=== PATIENT | female | born 1990 | race Two or more races ===

== ENCOUNTER 2016-12-25 00:58 | Emergency (ER) | payer MEDICAID ==
[~2016-12-25] VITALS: Ht 152.4 cm; Wt 68.0 kg
[2016-12-25 01:05] VITALS: BP 132/82
== END 2016-12-25 02:06 | disposition home or self-care (01) ==
LOC: ER 00:58
DX: J02.9 Acute pharyngitis, unspecified (principal)

== ENCOUNTER 2018-06-10 21:22 | Observation (INO) | payer MEDICAID ==
[2018-06-10] MEDS ORDERED: PREN-96 PO (22:26)
== END 2018-06-10 22:12 | disposition home or self-care (01) | DRG 566 ==
LOC: LDRP 21:22
PROVIDERS: ADMIT Obstetrics & Gynecology; ATTEND Obstetrics & Gynecology
DX: O26.892 Other specified pregnancy related conditions, second trimester (principal); M54.9 Dorsalgia, unspecified; R10.9 Unspecified abdominal pain; O99.89 Other specified diseases and conditions complicating pregnancy, childbirth and the puerperium; Z3A.26 26 weeks gestation of pregnancy
CPT/HCPCS: 59025; 81002; G0378

== ENCOUNTER 2019-08-07 19:55 | Emergency (ER) | payer MEDICAID ==
[~2019-08-07] VITALS: Ht 154.9 cm; Wt 81.6 kg
[~2019-08-07 19:55] MED LIST: PREN-96 PO
[2019-08-08] MEDS ORDERED: LORazepam 2MG/ML-1ML VIAL IV ONE (01:00)
[2019-08-08 04:10] VITALS: BP 197/57
== END 2019-08-08 05:51 | disposition home or self-care (01) ==
LOC: ER 19:59
DX: H70.92 Unspecified mastoiditis, left ear (principal); H60.92 Unspecified otitis externa, left ear
CPT/HCPCS: 70450; 93005; 96374; 99284; J2060

== ENCOUNTER 2020-12-02 22:47 | Emergency (ER) | payer MEDICAID ==
[~2020-12-02] VITALS: Ht 154.9 cm; Wt 83.0 kg
[2020-12-03] MEDS ORDERED: SODIUM CHLORIDE 0.9% 1,000 ML IV ONE (02:45)
[2020-12-03 06:39] LABS: Basophils # (auto) 0.1 10 ^3/uL (0-0.2); Eosinophils # (auto) 0.1 10 ^3/uL (0-0.8); Monocytes # (auto) 0.6 10 ^3/uL (0-1.3); White Blood Cell 10.7 10^3/uL (4.4-10.8)
[2020-12-03 06:43] LABS: Basophils % (auto) 0.6 % (0.0-2.0); Eosinophils % (auto) 1.1 % (0.0-7.0); Hematocrit 34.1 % (36.0-46.0); Hemoglobin 11.7 g/dL (12.2-16.2); Lymphocytes # (auto) 2.5 10 ^3/uL (0.4-5.4); Lymphocytes % (auto) 23.7 % (10.0-50.0); Mean Corpuscular Hemoglobin 25.8 pg (28.0-32.0); Mean Corpuscular Hgb Conc. 34.4 g/dL (32.0-36.0); Mean Corpuscular Volume 74.9 fL (80.0-100.0); Monocytes % (auto) 5.5 % (0.0-12.0); Neutrophils # (auto) 7.4 10 ^3/uL (1.6-8.6); Neutrophils % (auto) 69.1 % (37.0-80.0); Platelet Count (auto) 333 10^3/uL (140-450); Red Blood Cells 4.56 10^6/uL (4.0-5.20); Red Cell Distribution Width 17.3 % (11.8-14.3)
[2020-12-03 06:58] LABS: Albumin 3.4 g/dL (3.4-5.0); Calcium 8.9 mg/dL (8.5-10.1); Magnesium 2.1 mg/dL (1.6-2.6); Potassium 3.4 mmol/L (3.5-5.1)
[2020-12-03 07:03] LABS: BUN/Creatinine Ratio 9.7; Bilirubin, Total 0.3 mg/dL (0.2-1.0); Total Protein 8.5 g/dL (6.4-8.2)
[2020-12-03 07:27] VITALS: BP 123/70
[2020-12-03] MEDS ORDERED: DICYCLOMINE HCL (10MG/ML) 2 ML AMPULE IM ONE (08:15)
[2020-12-03] MEDS ORDERED: ACETAMINOPHEN 500 MG TAB PO ONE (09:30)
== END 2020-12-03 09:49 | disposition home or self-care (01) ==
LOC: ER 22:48
DX: O21.0 Mild hyperemesis gravidarum (principal); O26.891 Other specified pregnancy related conditions, first trimester; R51.9 Headache, unspecified; E86.0 Dehydration; Z3A.08 8 weeks gestation of pregnancy
CPT/HCPCS: 36415; 80053; 83735; 85025; 96360; 96372; 99283; J0500; J7030

== ENCOUNTER 2021-05-20 15:20 | Observation (INO) | payer MEDICAID ==
[~2021-05-20] VITALS: Ht 154.9 cm; Wt 88.9 kg
[2021-05-20] MEDS ORDERED: LACTATED RINGER'S 1,000 ML IV ONE (16:00)
[2021-05-20] MEDS: TERBUTALINE SULFATE 1 MG/ML 1ML VIAL SC SCH ×2 (16:04→16:56)
== END 2021-05-20 17:50 | disposition home or self-care (01) ==
LOC: LDRP 15:20
PROVIDERS: ADMIT Specialist; ATTEND Specialist
DX: O60.03 Preterm labor without delivery, third trimester (principal); O62.9 Abnormality of forces of labor, unspecified; Z3A.32 32 weeks gestation of pregnancy
CPT/HCPCS: 59025; 81002; 96360; 96372; G0378; J3105

== ENCOUNTER 2021-07-17 19:49 | Emergency (ER) | payer MEDICAID ==
[~2021-07-17] VITALS: Ht 154.9 cm; Wt 81.6 kg
[2021-07-17] MEDS ORDERED: FUROSEMIDE 40 MG/4 ML VIAL ONE (20:47)
[2021-07-17 22:00] VITALS: BP 129/81
== END 2021-07-17 22:54 | disposition home or self-care (01) ==
LOC: ER 19:51
DX: R53.1 Weakness (principal); R51.9 Headache, unspecified; R42 Dizziness and giddiness; R55 Syncope and collapse; R20.2 Paresthesia of skin; Z79.899 Other long term (current) drug therapy; Z20.822 Contact with and (suspected) exposure to COVID-19
CPT/HCPCS: 36415; 87426; 99283; J1940

== ENCOUNTER 2024-03-31 22:17 | Emergency (ER) | payer MEDICAID ==
[~2024-03-31] VITALS: Ht 154.9 cm; Wt 88.7 kg
[2024-03-31 22:58] LABS: Urine Bacteria None Seen /hpf (None Seen)
[2024-03-31 23:05] LABS: Basophils # (auto) 0.1 10 ^3/uL (0-0.2); Eosinophils # (auto) 0.2 10 ^3/uL (0-0.8); Red Blood Cells 4.38 10^6/uL (4.0-5.20); Red Cell Distribution Width 16.9 % (11.8-14.3)
[2024-03-31 23:07] LABS: Basophils % (auto) 0.6 % (0.0-2.0); Hemoglobin 11.3 g/dL (12.2-16.2); Lymphocytes # (auto) 2.5 10 ^3/uL (0.4-5.4); Lymphocytes % (auto) 15.5 % (10.0-50.0); Mean Corpuscular Hemoglobin 25.8 pg (28.0-32.0); Mean Corpuscular Hgb Conc. 33.2 g/dL (32.0-36.0); Mean Corpuscular Volume 77.7 fL (80.0-100.0); Monocytes # (auto) 0.7 10 ^3/uL (0-1.3); Monocytes % (auto) 4.6 % (0.0-12.0); Neutrophils # (auto) 12.5 10 ^3/uL (1.6-8.6); Neutrophils % (auto) 78.3 % (37.0-80.0); Nucleated Red Blood Cells % 0.1 %
[2024-03-31 23:23] LABS: Urine Blood 3+ /uL (Negative); Urine Clarity Turbid (Clear); Urine Color Light-Orange (Yellow); Urine Protein, UAD 1+ (Negative); Urine Specific Gravity 1.019 (1.001-1.035); Urine Urobilinogen Normal (Negative); Urine WBC 7 /hpf (0 - 5)
[2024-03-31 23:24] LABS: Alanine Aminotransferase 10 U/L (7-40); Albumin 4.3 g/dL (3.2-4.8); Alkaline Phosphatase 69 U/L (46-116); Anion Gap 9 (5-15); Aspartate Aminotransferase 10 U/L (13-40); BUN/Creatinine Ratio 8.3 (10.0-20.0); Bilirubin, Total 0.3 mg/dL (0.2-1.0); Blood Urea Nitrogen 7 mg/dL (9-23); Calcium 9.8 mg/dL (8.7-10.4); Carbon Dioxide 23 mmol/L (20-30); Chloride 102 mmol/L (98-107); Glucose 187 mg/dL (74-106); Potassium 3.1 mmol/L (3.5-5.1); Sodium 134 mmol/L (136-145); Total Protein 7.6 g/dL (5.7-8.2)
[2024-04-01 03:20] VITALS: BP 127/77; PULSE 98; RESP 19; O2SAT 99
[2024-04-01] MEDS: POTASSIUM CHL 20 Meq TABLET PO ONE (03:20)
== END 2024-04-01 03:31 | disposition home or self-care (01) ==
LOC: ER 22:17
DX: O03.6 Delayed or excessive hemorrhage following complete or unspecified spontaneous abortion (principal); R10.2 Pelvic and perineal pain
CPT/HCPCS: 36415; 76801; 76817; 80053; 81001; 84702; 85025; 86850; 86900; 86901

== ENCOUNTER 2024-08-02 18:32 | Emergency (ER) | payer MEDICAID ==
[~2024-08-02] VITALS: Ht 154.9 cm; Wt 74.0 kg
[2024-08-02 19:05] VITALS: BP 119/80; PULSE 97; RESP 17; O2SAT 94
[2024-08-02] MEDS ORDERED: COROSUS OT (20:32)
[2024-08-02] MEDS ORDERED: IBU600T PO (20:32)
[2024-08-02] MEDS ORDERED: LORA-1130 PO (20:32)
[2024-08-02] MEDS: HYDROcodone-ACET 5/325MG TAB PO ONE (21:40)
== END 2024-08-02 21:40 | disposition home or self-care (01) ==
LOC: ER 18:32
DX: H69.93 Unspecified Eustachian tube disorder, bilateral (principal)

== ENCOUNTER 2024-08-06 18:30 | Emergency (ER) | payer MEDICAID ==
[~2024-08-06] VITALS: Ht 165.1 cm; Wt 80.0 kg
[~2024-08-06 18:30] MED LIST changes: +COROSUS OT; +IBU600T PO; +LORA-1130 PO
[2024-08-06 19:29] VITALS: BP 138/93; PULSE 78; RESP 18; TEMP 98.6; O2SAT 99
[2024-08-06] MEDS ORDERED: AZIT-43 PO (21:39)
[2024-08-06] MEDS: DexAMETHasone SOD PHOS 10MG/1ML VIAL INJ IM ONE (21:54)
== END 2024-08-06 21:55 | disposition home or self-care (01) ==
LOC: ER 18:30
DX: J06.9 Acute upper respiratory infection, unspecified (principal); Z79.899 Other long term (current) drug therapy
CPT/HCPCS: 96372; 99283; J1100

== ENCOUNTER 2024-11-09 17:00 | Emergency (ER) | payer MEDICAID ==
[~2024-11-09] VITALS: Ht 157.5 cm; Wt 80.0 kg
[~2024-11-09 17:00] MED LIST changes: +AZIT-43 PO
[2024-11-09] MEDS: ACETAMINOPHEN 500 MG TAB or CAP PO ONE (17:50)
[2024-11-09 19:11] VITALS: BP 122/76; PULSE 105; RESP 17; TEMP 99; O2SAT 97
[2024-11-09] MEDS ORDERED: PRED20TA2 PO (19:16)
[2024-11-09] MEDS ORDERED: ACET500T58 PO (19:16)
[2024-11-09] MEDS ORDERED: AZIT-43 PO (19:16)
--- NOTE | 2024-11-09 19:16 | ED.PDOC ---
History of Present Illness HPI Comments 34 year old female presents to ER with complaints of cough x1 week. Patient reports he has been experiencing a dry cough x1 week with associated fever ans sore throat x1 day. Reports that she last took [id number] Tylenol at 2:00 p.m. prior to arrival to ER. Patient presents to ER febrile on arrival at 101.2 F, ambulatory, with steady gait, in no distress. Denies any pain. Notes that her son has also been experiencing similar symptoms. 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: No Pertinent HAIRSPRING SETTER History Family History Family History: No family hx ofKidney alvaro, No family hx of Liver alvaro, No family hx of Lung alvaro, Family hx of DM, Family hx of heart alvaro, Family hx of stroke Social History Smoker: Non-Smoker Alcohol: Denies ETOH Use Drugs: Denies Drug Use Lives In: Home Constitutional: See HPI EENTM: See HPI Respiratory: See HPI Cardiovascular: No Symptoms Reported Gastrointestinal: No Symptoms Reported Genitourinary: No Symptoms Reported Neurological: No Symptoms Reported Musculoskeletal: No Symptoms Reported Integumentary: No Symptoms Reported Allergic/Immunocompromised: others (unknown) Hematologic/Lymphatic: No Symptoms Reported Endocrine: No Symptoms Reported Psychiatric: No symptoms Reported Physical Exam General Appearance: No Apparent Distress, Obese HEENT: PERRL/EOMI, Pharyngeal Erythema (Mild tonsillar swelling/erythema noted bilaterally without exudates. Uvula-normal), TMs Normal Neck: Full Range of Motion, Non-Tender, Normal Respiratory: Chest Non-Tender, Lungs Clear, No Accessory Muscle Use, No Respir atory Distress, Normal Breath Sounds Cardiovascular: No Murmur, No Gallop, Regular Rate/Rhythm Breast Exam: Deferred Gastrointestinal: NOT DONE Genitalia: Deferred Pelvic: Deferred Rectal: Deferred Extremities: Normal capillary refill, Normal range of motion Neurologic: Alert, program engagement director II-XII nml as Tested, No Motor Deficits, Normal Affect, Normal Mood, No Sensory Deficits Cerebellar Function: Normal Reflexes: Normal Skin: Dry, Normal Color, Warm Peripheral Pulses: 2+ Radial (R), 2+ Radial (L), 2+ Brachial (R), 2+ Brachial (L) Lymphatic: No Adenopathy Was a procedure done? Was a procedure done?: No Sedation Sedation?: No Fever Differential Dx Differential Diagnosis: Pneumonia, Sepsis, Pharyngitis X-Ray, Labs, Meds, VS Vital Signs Date Time Temp Pulse Resp B/P (MAP) Pulse Ox O2 Delivery O2 Flow Rate FiO2 11/09/24 19:11 99.0 105 17 122/76 (91) 97 99.0 11/09/24 19:06 99.0 11/09/24 18:28 100.0 124 17 130/87 (101) 97 100.0 11/09/24 18:28 124 20 98 Room Air 11/09/24 17:50 100.5 11/09/24 17:34 101.2 130 20 149/91 (110) 97 Current Medications Medications (Trade) Dose Ordered Sig/Nelly Route Start Time Stop Time Status Last Admin Acetaminophen (Tylenol Tablet Or Capsule) 1,000 mg ONCE ONCE PO 11/09/24 17:45 11/09/24 17:46 DC 11/09/24 17:50 PATIENT: BA MARCH ACCT: [id number] UNIT: [id number] : 1990 LOC: ER ROOM / BED: / AGE / SEX: 34 / F ADM STATUS: [facility] ER SERVICE 09 ORDERING PHYSICIAN: HANNA VERA PROCEDURE(s): CXR1 - CHEST XRAY 1 VIEW REASON: cough ORDER NUMBER(s): [id number], ACCESSION NUMBER(s): [id number] CHEST RADIOGRAPH Indication: cough Technique: Single frontal view of the chest was obtained Comparison: None FINDINGS: Lines and Tubes: None Lungs: No focal consolidation. Pleura: No effusion. No pneumothorax. Cardiomediastinal contours: Unremarkable Bones: No acute osseous abnormality. IMPRESSION: 1. No acute cardiopulmonary disease. HS:Y ATED BY: ZAN ROSAS Jr., DO DICTATED DATE/TIME: 11/09/241931 SIGNED BY: ZAN ROSAS Jr., SIGNED DATE/TIME: 11/09/241931 CC: waiver signed Tylenol 1000 mg p.o. ordered Rocephin 1 g IM ordered Solu-Medrol 125 mg IM ordered Chest x-ray reviewed Patient had improvement in symptoms and in no distress prior to discharge Advised to drink plenty of fluids Advised to follow up with PCP in 1-2 days Patient verbalized understanding and agreeable with current plan of care Advised to return to ER immediately if symptoms worsen Time of 1ST Reevaluation: 18:54 Reevaluation 1ST: N/A Time of 2ND Reevaluation: 19:44 Reevaluation 2ND: Improved Patient Education/Counseling: Diagnosis, Treatment, Prognosis, Need For Follow Up Family Education/Counseling: No Family Present Departure 1 Departure Time of Disposition: 19:50 Impression: Primary Impression: URI (upper respiratory infection) Qualified Codes: J06.9 - Acute upper respiratory infection, unspecified Disposition: HOME / SELF CARE / HOMELESS Condition: Stable e-Prescriptions Prednisone (Prednisone) 20 Mg Tab 20 MG PO BID for 5 Days, #10 TAB 0 Refills Prov: HANNA VERA 11/09/24 Azithromycin (Azithromycin) 250 Mg Tab 250 MG PO DAILY MDD 500 for 5 Days, #6 TAB 0 Refills 2 TABLETS ORALLY ON DAY ONE, THEN 1 TABLET ORALLY DAILY FOR 4 DAYS Prov: HANNA VERA 11/09/24 Acetaminophen (Acetaminophen) 500 Mg Tab 500 MG PO Q4HPRN, #30 TAB 0 Refills Prov: HANNA VERA 11/09/24 Discharged With: Self Critical Care Note Critical Care Time?: No Stability Stability form required: No Heart Score Heart Score: Heart Score Response (Comments) Value History N/A 0 EKG N/A 0 Age N/A 0 Risk Factors N/A 0 Troponin N/A 0 Total 0 HANNA VERA Nov 09, 2024 19:16
[2024-11-09] MEDS ORDERED: methylPREDNISolone SOD SUCC 125 MG/2 ML VL IM ONE (19:30)
[2024-11-09] MEDS ORDERED: cefTRIAXone SOD 1,000 MG VL IM ONE (19:30)
--- NOTE | 2024-11-09 19:34 | DVH ---
CHEST RADIOGRAPH Indication: cough Technique: Single frontal view of the chest was obtained Comparison: None FINDINGS: Lines and Tubes: None Lungs: No focal consolidation. Pleura: No effusion. No pneumothorax. Cardiomediastinal contours: Unremarkable Bones: No acute osseous abnormality. IMPRESSION: 1. No acute cardiopulmonary disease. HS:Y
== END 2024-11-09 19:05 | disposition home or self-care (01) ==
LOC: ER 17:00
DX: J06.9 Acute upper respiratory infection, unspecified (principal)
CPT/HCPCS: 71045

== ENCOUNTER 2025-05-30 18:15 | Emergency (ER) | payer MEDICAID ==
[~2025-05-30] VITALS: Ht 154.9 cm; Wt 85.0 kg
[~2025-05-30 18:15] MED LIST changes: +ACET500T58 PO; +PRED20TA2 PO
--- NOTE | 2025-05-30 19:51 | ED.PDOC ---
History of Present Illness HPI Comments 35-year-old female presents with chief complaint of abnormal vaginal spotting and lower abdominal pain. Patient endorses on being 18 weeks with her 12th , currently ([id number] miscarriages and 3 elective abortions. She reports on unprovoked, atraumatic, sudden onset of symptoms, today. Blood is bright red whenever using the toilet and light pink with wiping. Significant history of aborted and miscarriage pregnancies and anemia with need for blood transfusion with previous pregnancies. Last sexual intercourse was less than 3 days ago. Last order desk caller appointment was 2-3 weeks ago. Patient denies having any nausea, vomiting, urinary symptoms, fever, chills, or further associated symptoms. REVIEW OF SYSTEMS: General: No fever, no chills, HEENT: No neck pain, no blurred vision Cardiac: No chest pain. No palpitations. Lungs: No shortness of breath, GI: Abdominal pain, no vomiting : Abnormal vaginal bleeding Musculoskeletal: No joint pain , no back pain Skin: No rash, no wound Neuro: No headache, no dizziness, no syncope PHYSICAL EXAM: General: Awake, alert and oriented. No acute distress. Skin: Skin in warm, dry and intact without rashes or lesions. HEENT: The head is normocephalic and atraumatic. Conjunctivae are clear without exudates or hemorrhage. Sclera is non-icteric. Neck: Normal range of motion. No JVD. Cardiac: Regular rate Respiratory: No signs of respiratory distress. No Stridor. Gastrointestinal: abdomen Extremities: Upper and lower extremities are atraumatic in appearance without deformity. Neurological: The patient is awake, alert and oriented to person, place, and time with normal speech. Speech is clear. There is no facial asymmetry. Normal gait Psychiatric: Appropriate mood and affect. Good judgement and insight. Chief Complaint: Vaginal Bleed Time Seen by MD: 20:30 Primary Care Provider: UNKNOWN Reviewed Notes: Nurses Notes, Medications, Allergies Allergies: Coded Allergies: NO KNOWN ALLERGIES (Unverified , 11/11/14) Home Meds Active Scripts Cephalexin (KEFLEX CAPSULE) 250 Mg Cp, 500 MG PO BID for 7 Days, #28 CAP Prov:TRUONG MOORE MD 05/31/25 Prednisone (Prednisone) 20 Mg Tab, 20 MG PO BID for 5 Days, #10 TAB 0 Refills Prov:JODYHANNA THOMSON 11/09/24 Azithromycin (Azithromycin) 250 Mg Tab, 250 MG PO DAILY MDD 500 for 5 Days, #6 TAB 0 Refills 2 TABLETS ORALLY ON DAY ONE, THEN 1 TABLET ORALLY DAILY FOR 4 DAYS Prov:JODYHANNA BERTO 11/09/24 Acetaminophen (Acetaminophen) 500 Mg Tab, 500 MG PO Q4HPRN, #30 TAB 0 Refills Prov:JODYHANNA BERTO 11/09/24 Azithromycin (Azithromycin) 250 Mg Tab, 250 MG PO DAILY MDD 500 for 5 Days, #6 TAB 0 Refills 2 TABLETS ORALLY ON DAY ONE, THEN 1 TABLET ORALLY DAILY FOR 4 DAYS Prov:ROSELIA MOORE [employer]ATORY DIRECTOR 08/06/24 Loratadine & Pseudoephedrine (Claritin-D 24 Hour 10-240 mg) 1 Tab Tab, 1 TAB PO DAILY for 7 Days, #7 TAB Prov:CRISTINA REYEZ MD 08/02/24 Oulhegbh-Ckruuhqzt-Qo (Otic) (Cortisporin Otic Susp) [address], 1 DROP OT TID for 5 Days, #1 DROP Prov:CRISTINA REYEZ MD 08/02/24 Ibuprofen Micronized (MOTRIN TABLET) 600 Mg Tb, 600 MG PO TID PRN, #40 TAB *Black box warning-NSAIDS can increase risk of WA & hypertension, GI irritation, ulceration, bleed, perferation. Do not use post cardiac surgery. Use short duration/lowest effective dose. Prov:CRISTINA REYEZ MD 08/02/24 Reported Medications Vit W/ Ferrous Fumara ( One Daily) Daily Tab, 1 TAB PO DAILY, #90 TAB 3 Refills 06/10/18 Information Source: Patient Mode of Arrival: Ambulatory Severity: Moderate Timing: Hours Duration: Since onset Prehospital treatment: None Past Medical History PAST MEDICAL HISTORY: Anemia Surgical History (Other): Hx of blood transfusions in the past with her previous pregnancies. 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 Was a procedure done?: No Differential Dx Considerations may include: Differential diagnoses considered include but are not limited to placenta previa, placental abruption, ruptured vasa previa, uterine scar or disruption, cervicitis, vaginitis, labor, trauma, urinary tract infection, other X-Ray, Labs, Meds, VS Vital Signs Date Time Temp Pulse Resp B/P (MAP) Pulse Ox O2 Delivery O2 Flow Rate FiO2 05/31/25 01:39 98.8 79 20 124/62 (82) 100 98.8 05/30/25 18:20 98.1 95 16 114/71 97 98.1 Lab Test 05/30/25 20:44 05/30/25 19:52 Range/Units White Blood Count 9.4 4.4-10.8 10^3/uL Red Blood Count 3.75 L 4.0-5.20 10^6/uL Hemoglobin 9.7 L 12.2-16.2 g/dL Hematocrit 28.1 L 36.0-46.0 % Mean Corpuscular Volume 75.0 L 80.0-100.0 fL Mean Corpuscular Hemoglobin 26.0 L 28.0-32.0 pg Mean Corpuscular Hemoglobin Concent 34.6 32.0-36.0 g/dL Red Cell Distribution Width 17.9 H 11.8-14.3 % Platelet Count 235 140-450 10^3/uL Mean Platelet Volume 8.5 6.9-10.8 fL Neutrophils (%) (Auto) 69.0 37.0-80.0 % Lymphocytes (%) (Auto) 22.8 10.0-50.0 % Monocytes (%) (Auto) 5.3 0.0-12.0 % Eosinophils (%) (Auto) 2.3 0.0-7.0 % Basophils (%) (Auto) 0.6 0.0-2.0 % Neutrophils # (Auto) 6.5 1.6-8.6 10 ^3/uL Lymphocytes # (Auto) 2.1 0.4-5.4 10 ^3/uL Monocytes # (Auto) 0.5 0-1.3 10 ^3/uL Eosinophils # (Auto) 0.2 0-0.8 10 ^3/uL Basophils # (Auto) 0.1 0-0.2 10 ^3/uL Nucleated Red Blood Cells 0.0 % Sodium Level 139 136-145 mmol/L Potassium Level 3.2 L 3.5-5.1 mmol/L Chloride Level 105 98-107 mmol/L Carbon Dioxide Level 25 20-31 mmol/L Anion Gap 9 5-15 Blood Urea Nitrogen 7 L 9-23 mg/dL Creatinine 0.56 0.550-1.02 mg/dL Glomerular Filtration Rate Calc 122 >90 mL/min BUN/Creatinine Ratio 12.5 10.0-20.0 Serum Glucose 103 74-106 mg/dL Calcium Level 9.4 8.7-10.4 mg/dL Beta HCG, Quantitative 25251.6 H 1.5-4.2 mIU/mL Urine Color Yellow Yellow Urine Clarity Clear Clear Urine pH 5.5 5.0-9.0 Urine Specific [place] 1.030 1.001-1.035 Urine Protein Trace H Negative Urine Ketones Trace Negative Urine Blood 3+ H Negative /uL Urine Nitrite Negative Negative Urine Bilirubin Negative Negative Urine Urobilinogen Normal Negative mg/dL Urine Leukocyte Esterase 1+ Negative /uL Urine RBC 4 0 - 4 /hpf Urine Microscopic WBC 8 H 0-5 /HPF Urine Squamous Epithelial Cells Few <5 /hpf Urine Bacteria Few H None Seen /hpf Urine Mucus Few None Seen Urine Glucose Normal Normal mg/dL Urine Test Positive Negative [place] [id number] Ph: [phone] DIAGNOSTIC IMAGING Diagnostic Imaging Report : [id number] Signed PATIENT: BA MARCH ACCT: [id number] UNIT: [id number] : 1990 LOC: ER ROOM / BED: / AGE / SEX: 35 / F ADM STATUS: REG ER SERVICE 33 ORDERING PHYSICIAN: TRUONG MOORE MD PROCEDURE(s): OBUS - OB ULTRASOUND COMP GTR 14 WKS REASON: Vaginal bleeding, , abdominal pain ORDER NUMBER(s): [id number], ACCESSION NUMBER(s): [id number] LIMITED OB ULTRASOUND > 14 WKS: HISTORY: Vaginal bleeding, , abdominal pain TECHNIQUE: Multiple real-time grayscale images of the gravid uterus with duplex Doppler color flow and M-mode spectral analysis. TRANSDUCER: Transabdominal FINDINGS: IUP single live fetus at 17 weeks 2 days based on composite averages of the BPD, head circumference, abdominal circumference and femur length Estimated weight 185.67 grams heart rate 150 beats per minute TANGELA 4.9 cm Cervix 2.8 Breech Presentation Anterior Grade 1 Placenta without previa or abruption. BPD: 3.76 cm 17 weeks 3 days HC: 14.13 cm 17 weeks 3 days AC: 11.42 cm; 17 weeks 1 day FL: 2.37 cm ; 17 weeks 1 day CI: 76.44 (70 -86) HC/AC: 1.24 (1.070-1.29 FL/HC: 16.79 (14.94- 17.71 IMPRESSION: 1. IUP single live fetus at 17 weeks 2 days AUA corresponding to an VANNESA of 11/05/2025 2. FHR: 150 beats per minute ATED BY: ZAN TAPIA Jr., DO DICTATED DATE/TIME: 05/30/252114 SIGNED BY: ZAN TAPIA Jr., DO SIGNED DATE/TIME: 05/30/252114 CC: Time of 1ST Reevaluation: 21:00 Reevaluation 1ST: Unchanged Patient Education/Counseling: Treatment, Need For Follow Up Family Education/Counseling: No Family Present SEPSIS Sepsis Screen Date sepsis recognized/suspect: May 30, 2025 Time Sepsis recognized/suspect: 1822 Recent Procedure: No On Antibiotic Therapy: No Respiratory Rate >20: No Heart Rate >90: No Temp<36 C (96.8 F) or >38.3 C: No SBP <90 or MAP <65 mmHG: No New Acute Mental Status Change: No Is the patient on CPAP, BIPAP,: No Physician Orders Ob Ultrasound Comp Gtr 14 Wks (05/30/25 20:34) Vital Signs Date Time Temp Pulse Resp B/P (MAP) Pulse Ox O2 Delivery O2 Flow Rate FiO2 05/31/25 01:39 98.8 79 20 124/62 (82) 100 98.8 05/30/25 18:20 98.1 95 16 114/71 97 98.1 Laboratory Tests Test 05/30/25 20:44 White Blood Count 9.4 10^3/uL (4.4-10.8) Departure 1 Departure Time of Disposition: 22:43 Impression: Primary Impression: Vaginal bleeding during Additional Impressions: Anemia UTI (urinary tract infection) Disposition: 01 HOME / SELF CARE / HOMELESS Condition: Stable Additional Instructions: ED DISCHARGE INSTRUCTIONS Instructions: Please read all instructions provided in this packet carefully. Although you have been discharged from the Emergency Department, this does not mean that you have a "clean bill of health". No definitive diagnosis for your symptoms has been made today. It is possible that you are in the process of developing a serious illness. This is why you must return to the ED without fail if any new or worsening symptoms (especially if your symptoms include chest pain, trouble breathing, abdominal pain, fever, headache, confusion, trouble seeing, or trouble walking) It is also very important that you see your order desk caller within the next 3-5 days to follow up. A copy of your ultrasound report is included below. If you are unable to get an appointment, return to the ED for re-evaluation. Overview It's common to have some vaginal spotting when you are . In some cases, the bleeding isn't serious. And there aren't any more problems with the . But sometimes bleeding is a sign of a more serious problem. This is more common if the bleeding is heavy or painful. Examples of more serious problems include miscarriage, an ectopic , and a problem with the placenta. You may have to see your doctor again to be sure everything is okay. You may also need more tests to find the cause of the bleeding. Home treatment may be all you need. But it depends on what is causing the bleeding. Be sure to tell your doctor if you have any new symptoms or if your symptoms get worse. The doctor has checked you carefully, but problems can develop later. If you notice any problems or new symptoms, get medical treatment right away. Follow-up care is a gomez part of your treatment and safety. Be sure to make and go to all appointments, and call your doctor if you are having problems. It's also a good idea to know your test results and keep a list of the medicines you take. How can you care for yourself at home? If your doctor prescribed medicines, take them exactly as directed. Call your doctor if you think you are having a problem with your medicine. Do not have vaginal sex until your doctor says it's okay. Do not put anything in your vagina until your doctor says it's okay. Ask your doctor about other activities you can or can't do. Get a lot of rest. Being can make you tired. Do not use nonsteroidal anti-inflammatory drugs (NSAIDs), such as ibuprofen (Advil, Motrin), naproxen (Aleve), or aspirin, unless your doctor says it is okay. When should you call for help? Call 911 anytime you think you may need emergency care. For example, call if: You passed out (lost consciousness). You have severe vaginal bleeding. This means you are soaking through a pad each hour for 2 or more hours. You have sudden, severe pain in your belly or pelvis. Call your doctor now or seek immediate medical care if: You have new or worse vaginal bleeding. You are dizzy or lightheaded, or you feel like you may faint. You have pain in your belly, pelvis, or lower back. You think that you are in labor. You have a sudden release of fluid from your vagina. You've been having regular contractions for an hour. This means that you've had at least 8 contractions within 1 hour or at least 4 contractions within 20 minutes, even after you change your position and drink fluids. You notice that your baby has stopped moving or is moving much less than normal. Watch closely for changes in your health, and be sure to contact your doctor if you have any problems. LIMITED OB ULTRASOUND > 14 WKS: HISTORY: Vaginal bleeding, , abdominal pain TECHNIQUE: Multiple real-time grayscale images of the gravid uterus with duplex Doppler color flow and M-mode spectral analysis. TRANSDUCER: Transabdominal FINDINGS: IUP single live fetus at 17 weeks 2 days based on composite averages of the BPD, head circumference, abdominal circumference and femur length Estimated weight 185.67 grams heart rate 150 beats per minute TANGELA 4.9 cm Cervix 2.8 Breech Presentation Anterior Grade 1 Placenta without previa or abruption. BPD: 3.76 cm 17 weeks 3 days HC: 14.13 cm 17 weeks 3 days AC: 11.42 cm; 17 weeks 1 day FL: 2.37 cm ; 17 weeks 1 day CI: 76.44 (70 -86) HC/AC: 1.24 (1.070-1.29 FL/HC: 16.79 (14.94- 17.71 IMPRESSION: 1. IUP single live fetus at 17 weeks 2 days AUA corresponding to an VANNESA of 11/05/2025 2. FHR: 150 beats per minute e-Prescriptions Cephalexin (KEFLEX CAPSULE) 250 Mg Cp 500 MG PO BID for 7 Days, #28 CAP Prov: TRUONG MOORE MD 05/31/25 Discharged With: Self Comments MDM: 35-year-old female with vaginal bleeding while Ultrasound shows normal IUP Patient well-appearing, nontoxic. Advised prompt follow-up with order desk caller, return to the ED with any new, worsening or concerning symptoms. Extensive evaluation was performed in attempt to identify or rule out: (See differential diagnosis section) The following tests were ordered, and results were reviewed by me and discussed with patient: (See diagnostic results section) I reviewed the following notes from the pt's past medical encounters: May 20, 2021 and March 31, 2024 encounters for contractions and vaginal bleeding, respectively. Decision regarding hospitalization or escalation of hospital level of care: Risks and benefits of admission for further treatment of patient's condition was considered however due to patient's stable condition patient will be discharged to follow up closely or return to care for worsening of condition or inability to follow up. Critical Care Note Critical Care Time?: No Stability Stability form required: No Heart Score Heart Score: Heart Score Response (Comments) Value History N/A 0 EKG N/A 0 Age N/A 0 Risk Factors N/A 0 Troponin N/A 0 Total 0 I personally scribed for TRUONG MOORE MD ([email or web address]) on 05/30/25 at 19:51. Electronically submitted by Paramjit Whittington ([email or web address]). I personally scribed for TRUONG MOORE MD ([email or web address]) on 05/30/25 at 22:09. Electronically submitted by Paramjit Whittington ([email or web address]). I personally scribed for TRUONG MOORE MD ([email or web address]) on 05/30/25 at 22:11. Electronically submitted by Paramjit Whittington ([email or web address]). TRUONG MOORE MD May 30, 2025 19:51
[2025-05-30 20:11] LABS: Urine Protein, UAD TRACE (Negative)
[2025-05-30 21:11] LABS: Chloride 105 mmol/L (98-107); Sodium 139 mmol/L (136-145)
[2025-05-30 21:12] LABS: Anion Gap 9 (5-15); Carbon Dioxide 25 mmol/L (20-31)
[2025-05-30 21:13] LABS: Calcium 9.4 mg/dL (8.7-10.4)
[2025-05-30 21:16] LABS: Nucleated Red Blood Cells % 0.0 %
[2025-05-30 21:18] LABS: BUN/Creatinine Ratio 12.5 (10.0-20.0); Glucose 103 mg/dL (74-106); Hematocrit 28.1 % (36.0-46.0); Hemoglobin 9.7 g/dL (12.2-16.2); Mean Corpuscular Hemoglobin 26.0 pg (28.0-32.0); Mean Corpuscular Volume 75.0 fL (80.0-100.0)
--- NOTE | 2025-05-30 21:18 | DVH ---
LIMITED OB ULTRASOUND > 14 WKS: HISTORY: Vaginal bleeding, , abdominal pain TECHNIQUE: Multiple real-time grayscale images of the gravid uterus with duplex Doppler color flow an d M-mode spectral analysis. TRANSDUCER: Transabdominal FINDINGS: IUP single live fetus at 17 weeks 2 days based on composite averages of the BPD, head circumference, abdominal circumference and femur length Estimated weight 185.67 grams heart rate 150 beats per minute TANGELA 4.9 cm Cervix 2.8 Breech Presentation Anterior Grade 1 Placenta without previa or abruption. BPD: 3.76 cm 17 weeks 3 days HC: 14.13 cm 17 weeks 3 days AC: 11.42 cm; 17 weeks 1 day FL: 2.37 cm ; 17 weeks 1 day CI: 76.44 (70 -86) HC/AC: 1.24 (1.070-1.29 FL/HC: 16.79 (14.94- 17.71 IMPRESSION: 1. IUP single live fetus at 17 weeks 2 days AUA corresponding to an VANNESA of 11/05/2025 2. FHR: 150 beats per minute
[2025-05-30 21:33] LABS: Blood Urea Nitrogen 7 mg/dL (9-23); Potassium 3.2 mmol/L (3.5-5.1)
[2025-05-31 01:39] VITALS: BP 124/62; PULSE 79; RESP 20; TEMP 98.8; O2SAT 100
[2025-05-31] MEDS ORDERED: CEPH250C PO (04:09)
== END 2025-05-31 06:02 | disposition home or self-care (01) ==
LOC: ER 18:15
DX: O20.0 Threatened abortion (principal); O20.9 Hemorrhage in early pregnancy, unspecified; O23.42 Unspecified infection of urinary tract in pregnancy, second trimester; N39.0 Urinary tract infection, site not specified; O99.012 Anemia complicating pregnancy, second trimester; Z3A.18 18 weeks gestation of pregnancy; Z79.899 Other long term (current) drug therapy
CPT/HCPCS: 36415; 76805; 80048; 81001; 81025; 84702; 85025; 86850; 86900; 86901

== ENCOUNTER 2025-10-20 21:45 | Observation (INO) | payer MEDICAID ==
[~2025-10-20] VITALS: Ht 154.9 cm; Wt 85.7 kg
[~2025-10-20 21:45] MED LIST changes: +CEPH250C PO
[2025-10-20 23:22] LABS: Fern Testing Negative
--- NOTE | 2025-10-20 23:57 | DVHDS2 ---
Physician Discharge Progress N Final Diagnosis: False Labor Secondary Diagnosis: Bacterial Vaginosis / Dehydration/ Iron Deficeincy Anemia in Problems List: (1) 37 weeks gestation of (2) AMA (advanced maternal age) multigravida 35+ (3) Grand multipara (4) Pelvic pressure in (5) Limited care in third trimester (6) Rubella non-immune status, antepartum (7) History of dilation and curettage (8) History of delivery, currently (9) History of macrosomia in infant in prior , currently (10) History of blood transfusion (11) History of iron deficiency anemia Operations or Procedures: Operations or Procedures EXAM: US OB ULTRASOUND COMP GTR 14 WKS HISTORY: NO PNC in about 5-6 weeks TECHNIQUE: Multiple real-time grayscale images of the gravid uterus with duplex Doppler color flow and M-mode spectral analysis. COMPARISON: US OB ULTRASOUND COMP GTR 14 WKS on DOS: 05/30/25, US OB ULTRASOUND COMP LESS 14WKS on DOS: 03/31/24 FINDINGS: IUP single live fetus at 36 weeks 6 days average ultrasound age (AUA) based on composite averages of the BPD, head circumference, abdominal circumference and femur length Age based on (early ultrasound) : 37 weeks 4 days MEASUREMENTS: BPD: 9.1 cm GA: 37 w 0 d HC: 32.7 cm GA: 37 w 1 d AC: 33.0 cm GA: 36 w 6 d FL: 7.1 cm GA: 36 w 2 d Estimated weight 3028+/-454 grams; 6 lbs 11 oz +/-1 lb 0 oz, 39th percentile. heart rate 151 beats per minute TANGELA 13.1 cm, MVP 6.5 ANATOMIC SURVEY: Complete anatomic survey was not performed at this time, however, normal-appearing 4-chamber heart, stomach, bilateral kidneys and urinary bladder. Cephalic Presentation Anterior grade III placenta without previa or abruption Cervix not visualized. IMPRESSION: 1. IUP single live fetus at 36 weeks 6 days AUA corresponding to an VANNESA of 11/11/2025. 2. No abnormality detected. ATED BY: AGUSTÍN FUENTES MD DICTATED DATE/TIME: 10/21/25 0152 SIGNED BY: AGUSTÍN FUENTES MD SIGNED DATE/TIME: 10/21/25151 Commentary: Commentary TRIAGE Subjective 35 y/o (4,1,3,5) IUP 37w3d EDC 11/07/2024 LMP: 01/31/2025 Arrived to the Center with complaint of pressure and leaking of fluid Received PNC with [facility], reported OB discontinued care with patient for no show appointments Current complications in grand multiparity with history of precipitous deliveries Has not received care since the beginning of August Has not been able to do her glucose screening, labs 04/2025 AB Positive RPR non reactive Rubella Non Immune GBS Unknown HCV: Negative Heb B : Negative PAST MEDICAL HISTORY: Iron Deficiency Anemia OBGYN: History : X5/ Iron Deficiency Anemia in / Blood Transfusion / Hx PTD/ Hx macrosomia infant/ [place] Maternal Age PAST SURGICAL HISTORY: Dilation and Curretage MEDICATIONS: She takes vitamins. She has no known drug allergies. SOCIAL HISTORY: Denies any tobacco, alcohol or drug use. FAMILY HISTORY: Noncontributory. OB Hx : X5/ 3TAB/ 1 SAB/ D&C/ PTD / Blood Transfusion/ Iron Deficiency Anemia/ Hx Macrosomia / AMA #1 - 07/11/2006 39 wks GA Female #2 - 01/19/2012 38 wks GA Male #3- 06/16/2015 36 wks GA Female / PTD #4 - 09/07/2018 38 wks GA Female #5 - 07/07/2021 37 wks GA Blood Transfusion / Macrosomia infant 8lb 14oz Objective Physical Exam: A&O x3, NAD, well groomed. pleasant. Appropriate and normal mood and affect Afebrile, VSS Respiration unlabored Heart and lungs sounds: normal Abdomen: Gravid, non-tender to palpation. Extremities: No edema VE: Closed/ Thick/ High EFM: FHR baseline 125bpm moderate variability and accelerations 15 bpm X 15 bpm no deceleration uterine: Palpated soft and non tender Contractions: Uterine Irritability noted Assessment 35 y/o (4,1,3,5) IUP 37w3d EDC 11/07/2024 Pelvic pain and leaking of fluid R/O SROM and labor Plan EFM P.O hydration Wet Mount/ GBS collection/ Urine Culture / urinalysis CBC/CMP/ PNC panel Complete OB ultrasound Laboratory Tests Test 10/20/25 22:30 10/20/25 22:55 10/20/25 23:57 Urine Color Yellow (Yellow) Urine Clarity Turbid (Clear) Urine pH 6.0 (5.0-9.0) Urine Specific [place] 1.034 (1.001-1.035) Urine Protein 1+ (Negative) Urine Ketones Trace (Negative) Urine Blood Negative /uL (Negative) Urine Nitrite Negative (Negative) Urine Bilirubin Negative (Negative) Urine Urobilinogen 2 mg/dL (Negative) Urine Leukocyte Esterase 1+ /uL (Negative) Urine RBC 1 /hpf (0 - 4) Urine Microscopic WBC 3 /HPF (0-5) Urine Squamous Epithelial Cells Few /hpf (<5) Urine Bacteria None seen /hpf (None Seen) Urine Mucus Few (None Seen) Urine Glucose Normal mg/dL (Normal) Amniotic Fluid [place] Test Negative Placental [id number] Negative Vaginal WBC (Wet Prep) None seen Vaginal RBC (Wet Prep) Rare Vaginal Epithelial Cells (Wet Prep) Many Vaginal Bacteria (Wet Prep) Moderate Vaginal Trichomonas (Wet Prep) Not present Vaginal Yeast (Wet Prep) None seen Vaginal Clue Cells (Wet Prep) Few White Blood Count 12.6 10^3/uL (4.4-10.8) Red Blood Count 3.94 10^6/uL (4.0-5.20) Hemoglobin 8.4 g/dL (12.2-16.2) Hematocrit 26.6 % (36.0-46.0) Mean Corpuscular Volume 67.4 fL (80.0-100.0) Mean Corpuscular Hemoglobin 21.3 pg (28.0-32.0) Mean Corpuscular Hemoglobin Concent 31.7 g/dL (32.0-36.0) Red Cell Distribution Width 19.6 % (11.8-14.3) Platelet Count 254 10^3/uL (140-450) Mean Platelet Volume 8.8 fL (6.9-10.8) Neutrophils (%) (Auto) 76.4 % (37.0-80.0) Lymphocytes (%) (Auto) 17.4 % (10.0-50.0) Monocytes (%) (Auto) 4.7 % (0.0-12.0) Eosinophils (%) (Auto) 1.1 % (0.0-7.0) Basophils (%) (Auto) 0.4 % (0.0-2.0) Neutrophils # (Auto) 9.7 10 ^3/uL (1.6-8.6) Lymphocytes # (Auto) 2.2 10 ^3/uL (0.4-5.4) Monocytes # (Auto) 0.6 10 ^3/uL (0-1.3) Eosinophils # (Auto) 0.1 10 ^3/uL (0-0.8) Basophils # (Auto) 0 10 ^3/uL (0-0.2) Nucleated Red Blood Cells 0.2 % Platelet Estimate Adequate Giant Platelets Hypochromasia (manual) Slight Microcytosis Moderate Stomatocytes Few [place] Cells Few Prothrombin Time 9.6 sec (9.3-11.8) Prothromb Time International Ratio 0.90 (0.9-1.15) Activated Partial Thromboplast Time 24.8 SEC (24.5-34.5) Sodium Level 137 mmol/L (136-145) Potassium Level 3.5 mmol/L (3.5-5.1) Chloride Level 104 mmol/L (98-107) Carbon Dioxide Level 24 mmol/L (20-31) Anion Gap 9 (5-15) Blood Urea Nitrogen 6 mg/dL (9-23) Creatinine 0.67 mg/dL (0.550-1.02) Glomerular Filtration Rate Calc 117 mL/min (>90) BUN/Creatinine Ratio 9.0 (10.0-20.0) Serum Glucose 96 mg/dL (74-106) Hemoglobin A1c 5.5 % A1C (<5.7) Calcium Level 9.4 mg/dL (8.7-10.4) Total Bilirubin 0.3 mg/dL (0.2-1.0) Aspartate Amino Transf (AST/SGOT) 14 U/L (13-40) Alanine Aminotransferase (ALT/SGPT) < 9 U/L (7-40) Alkaline Phosphatase 127 U/L (46-116) Total Protein 7.4 g/dL (5.7-8.2) Albumin 4.0 g/dL (3.2-4.8) Treponema pallidum Antibody Non-reactive (Negative) HIV (1&2) Antibody Negative (Negative) Reassessment CX Closed / thick / High Negative SROM / Negative Nitrazine and Negative Ferning Anemia in Hgb 8.4 Wet Mount + Clue Cells Bacteria Vaginosis Urine Dehydration with Ketones and +1 Leukocytes / Urine Specific [place] 1.034 Potassium level 3.5 borderline low normal HGB A1 C 5.5 Rubella Non Immune GBS Results pending OB Ultrasound Complete 1 Fetus noted AUA 36w6d EFW 3028 grams / 6lbs 11 oz 39% percentile TANGELA 13.1 CM Cephalic presentation Plan Rx Flagy 500 mg BID X 7 days for Bacterial Vaginosis Take all medication and refrain from sexual intercourse during treatment Scheduled Iron Infusion for Tomorrow 10/22 1800 for iron deficiency anemia in Increase hydration , potassium and iron intake Decrease sugary drinks , unknown if the patient is diabetic. Continue to take PNC and Fe OTC Take Fe with empty stomach with Vitamin C fruit or juice for absorption Schedule a [facility], scheduled 1H [facility] Patient desires to delivery [facility] Patient is stable for discharge to home Education to come for scheduled Fe Infusion 10/22 Patient verbalizes understanding Condition on Discharge: Stable Disposition: Home Discharge Instructions: Diet: Regular Diet comment: Increase Iron intake and Potassium intake Activity: No Restrictions, As Tolerated Follow Up/Referral: Return to Triage for Scheduled Iron Infusion Medications: PNV New Medications: Metronidazole (Flagyl) 500 Mg Tab 1 TAB PO BID, #14 TAB Continued Medications: Ferrous Sulfate (Iron) 325 Mg Tab 325 MG PO DAILY, TAB Vit W/ Ferrous Fumara ( One Daily) Daily Tab 1 TAB PO DAILY, #90 TAB 3 Refills Follow Up Care: Discharge Statement: Follow up with OB care Provider the soonest Keep all scheduled appointments; seek care sooner if needed 3rd trimester emergency S&S labor & pre-eclampsia precautions reviewed with pt; advised to seek health care if any Discharge Care Plan Problem Knowledge deficit Goals Know Disease Process Initiate lifestyle change Adequate fluid volume Adequate fluid volume Skin remains intact Remain free of infection To perform ADL's w/ help Instructions Take Rx medications, Notify MD of any issues, Keep list of meds w/ you, Provide comfort measures See pt D/C handouts Risk factors Causes of fluid loss Visit Coding OBGYN Date of Service: Oct 20, 2025 Billing Provider: MARVA HUANG CNM [employer] Common Visit Codes: 08815-[id number] CARE DISCHARGE, 33985-NAAMROH OBS CARE (HIGH) [facility]57
[2025-10-21 00:06] LABS: Urine Protein, UAD 1+ (Negative)
[2025-10-21 00:15] LABS: Vaginal Bacteria Moderate; Vaginal Epithelial Cells Many
[2025-10-21 00:17] LABS: Vaginal Trichomonas Not Present
[2025-10-21 00:19] LABS: Vaginal Clue Cells Few
[2025-10-21 00:26] LABS: Hemoglobin 8.4 g/dL (12.2-16.2)
[2025-10-21 00:28] LABS: Hematocrit 26.6 % (36.0-46.0); Mean Corpuscular Hemoglobin 21.3 pg (28.0-32.0); Mean Corpuscular Volume 67.4 fL (80.0-100.0); Nucleated Red Blood Cells % 0.2 %
[2025-10-21 00:32] LABS: INR 0.9 (0.9-1.15); Partial Thromboplastin Time 24.8 SEC (24.5-34.5); Prothrombin Time 9.6 sec (9.3-11.8)
[2025-10-21 00:44] LABS: Albumin 4.0 g/dL (3.2-4.8); Anion Gap 9 (5-15); BUN/Creatinine Ratio 9.0 (10.0-20.0); Bilirubin, Total 0.3 mg/dL (0.2-1.0); Calcium 9.4 mg/dL (8.7-10.4); Carbon Dioxide 24 mmol/L (20-31); Chloride 104 mmol/L (98-107); Glucose 96 mg/dL (74-106); Potassium 3.5 mmol/L (3.5-5.1); Sodium 137 mmol/L (136-145); Total Protein 7.4 g/dL (5.7-8.2)
[2025-10-21 00:56] LABS: Alanine Aminotransferase < 9 U/L (7-40); Alkaline Phosphatase 127 U/L (46-116); Blood Urea Nitrogen 6 mg/dL (9-23)
[2025-10-21 01:20] LABS: Stomatocytes Few
--- NOTE | 2025-10-21 01:55 | DVH ---
EXAM: US OB ULTRASOUND COMP GTR 14 WKS HISTORY: NO PNC in about 5-6 weeks TECHNIQUE: Multiple real-time grayscale images of the gravid uterus with duplex Doppler color flow and M-mode spectral analysis. COMPARISON: US OB ULTRASOUND COMP GTR 14 WKS on DOS: 05/30/25, US OB ULTRASOUND COMP LESS 14WKS on DOS: 03/31/24 FINDINGS: IUP single live fetus at 36 weeks 6 days average ultrasound age (AUA) based on composite averages of the BPD, head circumference, abdominal circumference and femur length Age based on (early ultrasound) : 37 weeks 4 days MEASUREMENTS: BPD: 9.1 cm GA: 37 w 0 d HC: 32.7 cm GA: 37 w 1 d AC: 33.0 cm GA: 36 w 6 d FL: 7.1 cm GA: 36 w 2 d Estimated weight 3028+/-454 grams; 6 lbs 11 oz +/-1 lb 0 oz, 39th percentile. heart rate 151 beats per minute TANGELA 13.1 cm, MVP 6.5 ANATOMIC SURVEY: Complete anatomic survey was not performed at this time, however, normal- appearing 4-chamber heart, stomach, bilateral kidneys and urinary bladder. Cephalic Presentation Anterior grade III placenta without previa or abruption Cervix not visualized. IMPRESSION: 1. IUP single live fetus at 36 weeks 6 days AUA corresponding to an VANNESA of 11/11/2025. 2. No abnormality detected.
[2025-10-21] MEDS ORDERED: METR-344 PO ×2 (01:58)
[2025-10-21] MEDS ORDERED: FERR-7 PO ×2 (02:12)
[2025-10-21 03:40] LABS: Amphetamine Screen, Urine Neg (NEGATIVE); Barbiturate Scree,Urine Neg (NEGATIVE); Benzodiazephine Screen, Urine Neg (NEGATIVE); Cannabinoid Screen, Urine Neg (NEGATIVE); Cocaine Screen, Urine Neg (NEGATIVE); Opiate Scree,Urine Neg (NEGATIVE); Phencyclidine Screen, Urine Neg (NEGATIVE)
== END 2025-10-21 02:36 | disposition home or self-care (01) ==
LOC: LDRP 21:45
PROVIDERS: ADMIT Obstetrics & Gynecology; ATTEND Obstetrics & Gynecology
DX: O23.593 Infection of other part of genital tract in pregnancy, third trimester (principal); O99.02 Anemia complicating childbirth; D50.9 Iron deficiency anemia, unspecified; O99.284 Endocrine, nutritional and metabolic diseases complicating childbirth; E86.0 Dehydration; R79.1 Abnormal coagulation profile; Z3A.37 37 weeks gestation of pregnancy; Z79.899 Other long term (current) drug therapy; Z98.890 Other specified postprocedural states
CPT/HCPCS: 36415; 59025; 76805; 80053; 80307; 81001; 81002; 83036; 84112; 85025; 85610; 85730; 86703; 86762; 86780; 86803; 86850; 86900; 86901; 87081; 87210; 87340; 94760; A4649; G0378; Q0114

== ENCOUNTER 2025-10-21 19:52 | Observation (INO) | payer MEDICAID ==
[~2025-10-21] VITALS: Ht 154.9 cm; Wt 83.0 kg
[~2025-10-21 19:52] MED LIST changes: +FERR-7 PO; +METR-344 PO
[2025-10-21] MEDS ORDERED: IRON SUCROSE COMPLEX 110 ML IV ONE (21:00)
[2025-10-21] MEDS: FERROUS SULFATE 325mg EC TAB PO ONE (21:30)
--- NOTE | 2025-10-21 22:19 | DVHDS2 ---
Physician Discharge Progress N Final Diagnosis: IUP at 37w Anemia Operations or Procedures: Operations or Procedures S: 35yo G10, 4145 with EDC of 11/07/[address] for iron infusion. Hgb was 8.4g/dL on 10/20/25 She reports normal FM, no VB, SROM, WHITE, vision changes or epigastric pain O: <> PE A&O x3, NAD, well groomed. pleasant. Appropriate and normal mood and affect Afebrile, VSS Respiration unlabored Heart and lungs sounds: normal Abdomen: Gravid, non-tender to palpation. Fundal Ht cm. Cephalic presentation Extremities: No edema <>EFM: > FHR baseline 140bpm with moderate variability and accelerations, no deceleration > Tocometer: No UC noted, none palpated A: IUP at 37w 5d AMA Anemia in Reactive NST P: Unsuccessful attempt at starting IV line 3x by RNs Dr Evans ordered oral iron administration; D/Cd Infusion Discharge pt home To continue oral Iron supplement 3times /day; [place] [facility] [place] 3rd [place] emergency signs and symptoms reviewed with patient, advised to go to ER if any Condition on Discharge: Stable Disposition: Home Discharge Instructions: Diet: Regular Activity: No Restrictions, As Tolerated Activity comment: Balance activity with rest periods Follow Up/Referral: Pt to call her Ob provider w/ -72hours for f/u; states she will call on Friday10/24/25 Medications: Ferrous Sulfate Follow Up Care: [place]charge Statement[place] [facility] [place]rd [place] emergency signs and symptoms reviewed with patient, advised to go to ER if any "Patient was advised to return to the ER or call 911 if any headaches, dizziness, shortness of breath, chest pain, abdominal pain, bleeding, fevers, or worsening of medical condition. Patient was counseled about treatment plan, medications, possible side effects, patientverbalized understanding. All questions were answered to the best of my ability. This discharge took greater then 30 minutes in planning, reviewing documentatio n, counseling the patient, and discussing with other team members." Visit Coding OBGYN Date of Service: Oct 22, 2025 Billing Provider: TANYA PATEL CNM [employer] Common Visit Codes: 12479-DLG/OBS SAME DATE (HIGH) [employer] Procedure Codes: 04314-86- NON-STRESS TEST TANYA PATEL [facility] Oct 21, 2025 22:19
== END 2025-10-21 22:34 | disposition home or self-care (01) ==
LOC: LDRP 19:52
PROVIDERS: ADMIT Obstetrics & Gynecology; ATTEND Obstetrics & Gynecology
DX: O99.013 Anemia complicating pregnancy, third trimester (principal); D64.9 Anemia, unspecified; Z3A.37 37 weeks gestation of pregnancy; Z98.890 Other specified postprocedural states
CPT/HCPCS: 59025; 81002; 94760; A4649; G0378; J1756